=== PATIENT | male | born 1975 | race Native Hawaiian/Other Pacific Islander ===

== ENCOUNTER 2018-01-18 13:20 | Emergency (ER) | payer OTHER ==
[~2018-01-18] VITALS: Ht 180.3 cm; Wt 93.9 kg
[2018-01-18] MEDS ORDERED: MOBIC15 MG PO (14:49)
[2018-01-18 15:14] VITALS: BP 148/97
== END 2018-01-18 15:10 | disposition home or self-care (01) ==
LOC: ER 13:20
DX: M77.51 Other enthesopathy of right foot and ankle (principal)